=== PATIENT | male | born 1975 | race Caucasian/White ===

== ENCOUNTER 2017-02-23 20:27 | Emergency (ER) | payer OTHER ==
[2017-02-23] MEDS: CYCLOBENZAPRINE 10 MG TABLET. PO (22:01)
[2017-02-23] MEDS: IBUPROFEN 800 MG TABLET. PO (22:01)
== END 2017-02-23 22:12 | disposition home or self-care (01) ==
LOC: ER 20:27
DX: S29.012A Strain of muscle and tendon of back wall of thorax, initial encounter (principal); W18.40XA Slipping, tripping and stumbling without falling, unspecified, initial encounter; Y93.89 Activity, other specified; Y92.89 Other specified places as the place of occurrence of the external cause; Y99.8 Other external cause status
CPT/HCPCS: 73030; 99284